=== PATIENT | male | born 1940 | race Caucasian/White ===

== ENCOUNTER 2022-04-22 09:50 | Emergency (ER) | payer MEDICARE, OTHER ==
[2022-04-22 10:54] LABS: HEMOGLOBIN 12.4 gm/dl (14.0-17.5); RED BLOOD COUNT 3.8 M/UL (4.20-5.50); WHITE BLOOD COUNT 6.3 K/UL (4.5-11.0)
[2022-04-22 11:24] LABS: BUN/CREATININE RATIO 16 (0-10)
[2022-04-22] MEDS ORDERED: OMNICEF 300 MG300 MG PO (13:06)
[2022-04-22] MEDS ORDERED: ZITHROMAX250 MG PO (13:06)
== END 2022-04-22 14:07 | disposition home or self-care (01) ==
LOC: ER1 09:50
PROVIDERS: Physician Assistant
DX: J18.9 Pneumonia, unspecified organism (principal); Z20.822 Contact with and (suspected) exposure to COVID-19
CPT/HCPCS: 0240U; 51701; 70450; 71045; 80053; 81001; 82550; 82553; 84484; 85025; 93005; 99285

== ENCOUNTER 2022-04-27 16:50 | Inpatient (IN) | payer MEDICARE, OTHER ==
[~2022-04-27] VITALS: Ht 190.5 cm; Wt 52.2 kg
[~2022-04-27 16:50] MED LIST: OMNICEF 300 MG300 MG PO; ZITHROMAX250 MG PO
[2022-04-27 17:25] LABS: HEMOGLOBIN 12.2 gm/dl (14.0-17.5); RED BLOOD COUNT 3.76 M/UL (4.20-5.50); WHITE BLOOD COUNT 10.6 K/UL (4.5-11.0)
[2022-04-27 17:43] LABS: BUN/CREATININE RATIO 18 (0-10)
[2022-04-28 06:00] LABS: HEMOGLOBIN 10.8 gm/dl (14.0-17.5); RED BLOOD COUNT 3.39 M/UL (4.20-5.50); WHITE BLOOD COUNT 10.1 K/UL (4.5-11.0)
[2022-04-28 06:25] LABS: BUN/CREATININE RATIO 15 (0-10)
[2022-04-28] MEDS ORDERED: MEGESTROL400 MG/11 PO (10:11)
[2022-04-28] MEDS ORDERED: BENADRYL25 MG PO (10:12)
[2022-04-29 06:31] LABS: HEMOGLOBIN 10.6 gm/dl (14.0-17.5); RED BLOOD COUNT 3.33 M/UL (4.20-5.50); WHITE BLOOD COUNT 7.7 K/UL (4.5-11.0)
[2022-04-29 15:10] LABS: BUN/CREATININE RATIO 13 (0-10)
[2022-04-30 04:48] LABS: HEMOGLOBIN 10.4 gm/dl (14.0-17.5); RED BLOOD COUNT 3.28 M/UL (4.20-5.50)
[2022-04-30 05:46] LABS: BUN/CREATININE RATIO 12 (0-10)
[2022-05-01 04:19] LABS: HEMOGLOBIN 11.1 gm/dl (14.0-17.5); RED BLOOD COUNT 3.52 M/UL (4.20-5.50); WHITE BLOOD COUNT 6.8 K/UL (4.5-11.0)
[2022-05-01 04:46] LABS: BUN/CREATININE RATIO 11 (0-10)
[2022-05-02 13:13] LABS: BUN/CREATININE RATIO 10 (0-10)
[2022-05-03 07:11] LABS: BUN/CREATININE RATIO 10 (0-10)
[2022-05-04 06:17] LABS: BUN/CREATININE RATIO 16 (0-10)
--- NOTE | 2022-05-05 16:01 | NUR ---
LATE ENTRY 1145 NG PLACED PER PROVIDERS ORDER PT TOLERATED PROCEDURE. X-RAY ORDERED TO VERIFY PLAVEMENT.
--- NOTE | 2022-05-05 16:47 | NUR ---
SPOKE TO DR. PAYNE AND SHE SAID THE NG TUBE IS GOOD TO USE, LONG PLACEMENT IS IN STOMACH, X-RAY CONFIRMATION STATES THE TUBE IS IN STOMACH.
[2022-05-06 03:07] LABS: HEMOGLOBIN 12.4 gm/dl (14.0-17.5); WHITE BLOOD COUNT 9.9 K/UL (4.5-11.0)
[2022-05-06 03:31] LABS: BUN/CREATININE RATIO 21 (0-10)
--- NOTE | 2022-05-06 03:53 | NUR ---
patients blood pressure was elevated during first round of vitals, provider was notified and new orders were placed.
[2022-05-07 06:50] LABS: WHITE BLOOD COUNT 7.8 K/UL (4.5-11.0)
[2022-05-07 06:53] LABS: RED BLOOD COUNT 3.51 M/UL (4.20-5.50)
[2022-05-07 07:04] LABS: BUN/CREATININE RATIO 27 (0-10)
--- NOTE | 2022-05-08 05:10 | NUR ---
upon start of shift assessment patient no longer had dobhoff in left nares. after further investigation, I was unable to find DC orders to remove the dobhoff. The dobhoff had been removed and documented that it was remove , but the time and orders were not indicated.
[2022-05-08 10:25] LABS: HEMOGLOBIN 11.6 gm/dl (14.0-17.5); RED BLOOD COUNT 3.66 M/UL (4.20-5.50)
[2022-05-08 10:49] LABS: BUN/CREATININE RATIO 22 (0-10)
--- NOTE | 2022-05-08 16:54 | NUR ---
SON STATED THAT HE DID NOT WANT TO START TUBE FEEDING AT THIS TIME. STATED THAT HE WOULD DISCUSS TUBE FEEDING WITH DR ADLER TOMORROW.
== END 2022-05-13 19:00 | disposition expired | DRG 871 ==
LOC: ER1 16:50 → CDU 21:13 → MED SURG 4 21:13 → PROG CARE 21:13 → MED SURG 4 04-30 14:59
PROVIDERS: Emergency Medicine; Internal Medicine; Surgery; ADMIT Internal Medicine
PROC: 4A13XR1 Monitoring of Arterial Saturation, Peripheral, External Approach (ICD-10-PCS; 2022-04-27)
PROC: 3E0G76Z Introduction of Nutritional Substance into Upper GI, Via Natural or Artificial Opening (ICD-10-PCS; 2022-05-07)
PROC: 0DH63UZ Insertion of Feeding Device into Stomach, Percutaneous Approach (ICD-10-PCS; principal; 2022-05-07 10:02)
DX: A41.9 Sepsis, unspecified organism (principal); E43 Unspecified severe protein-calorie malnutrition; Z20.822 Contact with and (suspected) exposure to COVID-19; Z51.5 Encounter for palliative care; Z66 Do not resuscitate; J69.0 Pneumonitis due to inhalation of food and vomit; J96.01 Acute respiratory failure with hypoxia; G93.41 Metabolic encephalopathy; J96.02 Acute respiratory failure with hypercapnia; J18.9 Pneumonia, unspecified organism; Z68.1 Body mass index [BMI] 19.9 or less, adult; I47.1 Supraventricular tachycardia; R65.20 Severe sepsis without septic shock; M19.90 Unspecified osteoarthritis, unspecified site; F03.90 Unspecified dementia, unspecified severity, without behavioral disturbance, psychotic disturbance, mood disturbance, and anxiety; D53.9 Nutritional anemia, unspecified; E86.0 Dehydration; L89.322 Pressure ulcer of left buttock, stage 2; R13.10 Dysphagia, unspecified; I10 Essential (primary) hypertension; E55.9 Vitamin D deficiency, unspecified; L89.312 Pressure ulcer of right buttock, stage 2; R62.7 Adult failure to thrive; Z90.49 Acquired absence of other specified parts of digestive tract; Z83.3 Family history of diabetes mellitus; Z87.01 Personal history of pneumonia (recurrent)
CPT/HCPCS: 36415; 36600; 71045; 74230; 80048; 80053; 80202; 80307; 81001; 82140; 82550; 82553; 82607; 82746; 82803; 83605; 83735; 83880; 84100; 84132; 84439; 84443; 84484; 85025; 85027; 85045; 85610; 85652; 85730; 86140; 87040; 87070; 87081; 87086; 87205; 92526; 92610; 92611-GN; 93005; 94640; 94664; 94760; 96374; 96375; 97110-GP-CQ; 97116; 97161; 97530; 97530-GP-CQ; 99285; A6212; J0360; J0692; J1650; J2060; J2185; J2270; J2704; J3370; J3480; J7040; J7070; Q9967